=== PATIENT | female | born 1985 | race American Indian/Alaskan Native ===

== ENCOUNTER 2017-06-14 08:18 | Emergency (ER) | payer MEDICAID, OTHER ==
[2017-06-14 08:38] VITALS: BP 117/76; PULSE 62; RESP 17; TEMP 98.2; O2SAT 98
--- NOTE | 2017-06-14 09:57 | C.PDOC ---
History Of Present Illness 31 y/o female presents to ED with c/o left lumbar pain since yesterday after lifting and play with nephew. Patient states pain is like spasm and denies numbness, bowel/bladder incontinence, fever, nausea, vomiting, dysuria or any other complaints at this time. Time Seen by Provider: 06/14/17 08:33 Chief Complaint (Nursing): Back Pain History Per: Patient History/Exam Limitations: no limitations Onset/Duration Of Symptoms: Days Current Symptoms Are (Timing): Still Present Past Medical History Reviewed: Historical Data, Nursing Documentation, Vital Signs Vital Signs: Last Vital Signs Temp 98.2 F 06/14/17 08:29 Pulse 62 06/14/17 08:29 Resp 17 06/14/17 08:29 BP 117/76 06/14/17 08:29 Pulse Ox 98 06/14/17 10:07 - Medical History PMH: Asthma Surgical History: No Surg Hx Family History: States: No Known Family Hx - Social History Hx Tobacco Use: Yes Hx Alcohol Use: Yes Hx Substance Use: Yes - Immunization History Hx Tetanus Toxoid Vaccination: No Hx Influenza Vaccination: No Hx Pneumococcal Vaccination: No Review Of Systems Constitutional: Negative for: Fever, Chills Gastrointestinal: Negative for: Nausea, Vomiting Genitourinary: Negative for: Dysuria, Incontinence Musculoskeletal: Positive for: Back Pain Skin: Negative for: Rash Physical Exam - Physical Exam Appears: Non-toxic, No Acute Distress Skin: Warm, Dry, No Rash Head: Atraumatic, Normacephalic Eye(s): bilateral: Normal Inspection Oral Mucosa: Moist Neck: Normal ROM, Supple Cardiovascular: Rhythm Regular Respiratory: Normal Breath Sounds, No Rales, No Rhonchi, No Wheezing Gastrointestinal/Abdominal: Soft, No Tenderness, No Guarding, No Rebound Back: No Vertebral Tenderness, Muscle Spasm (Palpated on left lumbar area) Extremity: Normal ROM, Capillary Refill (<2 seconds) Neurological/Psych: Oriented x3, Normal Speech, Normal Cognition, Normal Motor, Normal Sensation ED Course And Treatment O2 Sat by Pulse Oximetry: 98 (RA) Pulse Ox Interpretation: Normal Medical Decision Making Medical Decision Making: pt feeling better after toradol and flexeril. will d/c with naproxen and flexeril, f/u pmd. Disposition Counseled Patient/Family Regarding: Diagnosis, Need For Followup, Rx Given - Disposition Referrals: Jens Abdalla MD [Medical Doctor] - Disposition: HOME/ ROUTINE Disposition Time: 09:54 Condition: IMPROVED Additional Instructions: Please take medications as prescribed. DO not drive or operate machinery when taking muscle relaxant, Avoid heavy lifting. Follow up with Dr Woods next week. Prescriptions: Cyclobenzaprine [Cyclobenzaprine HCl] 10 mg PO Q8 #9 tab Naproxen 500 mg PO BID #20 tab Instructions: Muscle Spasms (DC) Forms: [facility] [facility] (Algerian), General Discharge Instructions - Clinical Impression Clinical Impression: Muscle spasm of back - PA / [employer] / Resident Statement MD/DO has reviewed & agrees with the documentation as recorded. - Scribe Statement The provider has reviewed the documentation as recorded by the Essieibjay Ortega All medical record entries made by the Essieibjay were at my direction and personally dictated by me. I have reviewed the chart and agree that the record accurately reflects my personal performance of the history, physical exam, medical decision making, and the department course for this patient. I have also personally directed, reviewed, and agree with the discharge instructions and disposition.
== END 2017-06-14 10:13 | disposition home or self-care (01) ==
LOC: C.ER 08:18
DX: M62.830 Muscle spasm of back (principal)
CPT/HCPCS: 96372; 99283; J1885